=== PATIENT | female | born 1975 | race Caucasian/White ===

== ENCOUNTER 2018-09-22 03:00 | Emergency (ER) | payer OTHER ==
--- NOTE | 2018-09-22 03:39 | ED Physician Documentation ---
PD HPI CHEST PAIN - Stated complaint Stated Complaint: CP - Chief complaint Chief Complaint: Cardiac - History obtained from History obtained from: Patient - History of Present Illness Timing - onset: How many weeks ago (1) Timing - onset during: Rest Timing - duration: Weeks (1) Timing - details: Gradual onset, Still present, Waxing and waning Pain level max: 4 Pain level now: 2 Quality: Tightness, Pain Location: Left chest Radiation: Left upper extremity Improved by: Nothing Worsened by: Palpation, Position Associated symptoms: No: Shortness of air, Diaphoresis, Nausea, Vomiting, Feeling faint / dizzy, General Weakness, Palpitations, Cough Similar symptoms before: Has not had sx before Recently seen: Not recently seen - Additional information Additional information: 43 y/o previously well female has developed a cramping/spam pain across the left chest from the axilla to the sternum in episodes lasting minutes and present when she is in bed at night. She feels like it is the tightening of the muscles to her chest wall. She cannot recall any specific injury to the area and she has become concerned about this after GOOGLING . Review of Systems Constitutional: denies: Fever Eyes: denies: Decreased vision Ears: denies: Ear pain Nose: denies: Rhinorrhea / runny nose, Congestion Throat: denies: Sore throat Cardiac: reports: Chest pain / pressure. 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 HEENT: Tonsil/Adenoidectomy - Present Medications Home Medications: Ambulatory Orders Medication Instructions Recorded Confirmed Bupropion HCl [Bupropion Xl] 150 mg PO DAILY 09/22/18 09/22/18 Cholecalciferol (Vitamin D3) 50,000 unit PO 09/22/18 [Vitamin D] Losartan/Hydrochlorothiazide 1 each PO DAILY 09/22/18 09/22/18 [Losartan-Hctz 50-12.5 mg Tab] Lurasidone HCl [Latuda] 40 mg PO DAILY 09/22/18 09/22/18 - Allergies Allergies/Adverse Reactions: Allergies Allergy/AdvReac Type Severity Reaction Status Date / Time No Known Drug Allergies Allergy Verified 09/22/18 03:09 - Social History Does the pt smoke?: No Smoking Status: Never smoker Does the pt drink ETOH?: Yes Does the pt have substance abuse?: No - Immunizations Immunizations are current?: Yes PD ED PE NORMAL - Vitals Vital signs reviewed: Yes (hypertensive) - General General: Alert and oriented X 3, No acute distress, Well developed/nourished - HEENT HEENT: Atraumatic, PERRL, EOMI - Neck Neck: Supple, no meningeal sign, No bony TTP - Cardiac Cardiac: RRR, No murmur - Respiratory Respiratory: No respiratory distress, Clear bilaterally, Other (There is pain to palpation of the chest wall above the breast and into the axilla. There are no palpable nodes in the axilla. The pain reproduces the symptoms the patient is presenting with. 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, No motor deficit, No sensory deficit, Normal speech Eye Opening: Spontaneous Motor: Obeys Commands Verbal: Oriented GCS Score: 15 - Psych Psych: Normal mood, Normal affect Results - Vitals Vitals: Vital Signs - 24 hr 09/22/18 09/22/18 09/22/18 03:03 03:09 03:10 Temperature 36.7 C Heart Rate 89 86 Respiratory 20 Rate Blood Pressure 156/101 H Blood Pressure 156/101 H [Left] Blood Pressure 157/95 H [Right] O2 Saturation 95 98 09/22/18 04:13 Temperature Heart Rate 65 Respiratory 18 Rate Blood Pressure 125/75 Blood Pressure [Left] Blood Pressure [Right] O2 Saturation 96 Oxygen O2 Source Room air - EKG (time done) 0313 Rate: Rate (enter#) (80) Rhythm: NSR [place]: LAD Ischemia: Normal ST segments, Q waves Compare to prior EKG: Old EKG unavailable Computer interpretation: Agree with computer - Labs Labs: Laboratory Tests 09/22/18 09/22/18 09/22/18 03:20 03:20 03:20 WBC 11.6 H RBC 4.61 Hgb 13.8 Hct 40.2 MCV 87.2 MCH 29.8 MCHC 34.2 RDW 13.4 Plt Count 313 MPV 6.8 L Neut # (Auto) 6.4 Lymph # (Auto) 4.3 H Mckenzie # (Auto) 0.7 Eos # (Auto) 0.2 Baso # (Auto) 0.1 Absolute Nucleated RBC 0.01 Nucleated RBC % 0.1 Sodium 135 Potassium 3.7 Chloride 99 L Carbon Dioxide 25 Anion Gap 11.0 BUN 13 Creatinine 0.8 Estimated GFR (MDRD) 78 L Glucose 109 H Calcium 9.4 Total Bilirubin 0.5 AST 22 ALT 27 Alkaline Phosphatase 58 Troponin I < 0.04 Total Protein 7.7 Albumin 3.9 Globulin 3.8 Albumin/Globulin Ratio 1.0 Lipase 55 H - Rads (name of study) chest 1 view Radiology: Prelim report reviewed (Impression: Normal single view chest.), EMP read indepedently, See rad report PD MEDICAL DECISION MAKING - ED course Complexity details: reviewed results, re-evaluated patient, considered differential, d/w patient ED course: 43-year-old female with left chest wall pain has pain to palpation that reproduces the pain she is presenting with. Her diagnostic studies are otherwise within normal. Departure - Departure Disposition: 01 Home, Self Care Clinical Impression: Chest wall pain Condition: Stable Instructions: ED Chest Pain Costochondritis Follow-Up: JUAN CARLOS JUÁREZ [Primary Care Provider] -
[2018-09-22 03:44] LABS: BASOPHILS # (AUTO) 0.1 10^3/uL (0.0-0.1); BASOPHILS % (AUTO) 0.6 %; EOSINOPHILS # (AUTO) 0.2 10^3/uL (0.0-0.7); EOSINOPHILS % (AUTO) 2.1 %; HGB - HEMOGLOBIN 13.8 g/dL (12.0-16.0); LYMPHOCYTES # (AUTO) 4.3 10^3/uL (1.5-3.5); LYMPHOCYTES % (AUTO) 36.8 %; MEAN CORPUSCULAR HEMOGLOBIN 29.8 pg (27.0-31.0); MEAN CORPUSCULAR HGB CONC 34.2 g/dL (32.0-36.0); MEAN CORPUSCULAR VOLUME 87.2 fL (81.0-99.0); MEAN PLATELET VOLUME 6.8 fL (7.9-10.8); MONOCYTES # (AUTO) 0.7 10^3/uL (0.0-1.0); MONOCYTES % (AUTO) 5.8 %; NEUTROPHILS # (AUTO) 6.4 10^3/uL (1.5-6.6); NEUTROPHILS % (AUTO) 54.7 %; PLT - PLATELET COUNT 313 10^3/uL (130-450); RED BLOOD COUNT 4.61 10^6/uL (4.20-5.40); RED CELL DISTRIBUTION WIDTH 13.4 % (12.0-15.0); WHITE BLOOD COUNT 11.6 x10^3/uL (4.8-10.8)
--- NOTE | 2018-09-22 03:48 | XRAY Report ---
Reason: chest pain Procedure Date: 09/22/2018 Accession Number: [id number] / [id number] Procedure: XR - Chest 1 View X-Ray CPT Code: 77844 FULL RESULT: EXAM: CHEST RADIOGRAPHY EXAM DATE: 09/22/2018 03:44 AM. CLINICAL HISTORY: Chest pain COMPARISON: None. TECHNIQUE: 1 view. FINDINGS: Lungs/Pleura: No focal opacities evident. No pleural effusion. No pneumothorax. Mediastinum: Within exam limitations, the cardiomediastinal contour is normal. Other: None. IMPRESSION: Normal single view chest. [facility]
[2018-09-22 03:54] LABS: ALBUMIN 3.9 g/dL (3.2-5.5); BILIRUBIN,TOTAL 0.5 mg/dL (0.2-1.0); CALCIUM 9.4 mg/dL (8.5-10.3); CREATININE 0.8 mg/dL (0.4-1.0); TOTAL PROTEIN 7.7 g/dL (6.7-8.2)
[2018-09-22 04:55] VITALS: BP 119/65
== END 2018-09-22 04:56 | disposition home or self-care (01) ==
LOC: ED 03:00
DX: R07.89 Other chest pain (principal); R94.31 Abnormal electrocardiogram [ECG] [EKG]; I10 Essential (primary) hypertension; E78.00 Pure hypercholesterolemia, unspecified
CPT/HCPCS: 36415; 71045; 80053; 83690; 84484; 85025; 93005; 99283; 99284